=== PATIENT | female | born 1940 | race Caucasian/White ===

== ENCOUNTER → 2019-05-04 | Outpatient (CLI) | payer MEDICARE ==
--- NOTE | 2019-05-05 15:00 | RAD ---
DATE: 05/04/2019 3:00 PM EXAM: MAMMO GRACE SCREENING BILATERAL HISTORY: routine screening evaluation. COMPARISON: 07/30/2016 07/29/2015 Bilateral CC and MLO views of the breasts were performed. Bilateral breast tomosynthesis was performed in CC and MLO projections. This study was interpreted with the benefit of Computerized Aided Detection (CAD). Breast Density: FATTY The Breast Parenchyma is primarily fatty replaced. Breast parenchyma level density A. FINDINGS: Benign calcifications are present. No suspicious masses, microcalcifications or architectural distortion is present to suggest malignancy in either breast. The visualized axillae are unremarkable. IMPRESSION: No mammographic evidence of malignancy. BI-RADS CATEGORY: 2 BENIGN FINDING(S) RECOMMENDED FOLLOW-UP: 12M 12 MONTH FOLLOW-UP Annual screening mammography is recommended, unless clinically indicated sooner based on symptoms or change in physical exam. PQRS compliance statement: Patient information was entered into a reminder system with a target due date for the next mammogram. Mammography is a sensitive method for finding small breast cancers, but it does not detect them all and is not a substitute for careful clinical examination. A negative mammogram does not negate a clinically suspicious finding and should not result in delay in biopsying a clinically suspicious abnormality. "Our facility is accredited by the [employer] Mammography [employer]."
== END | disposition home or self-care (01) ==
LOC: MAMMO 14:40
PROVIDERS: ATTEND Family Medicine
DX: Z12.31 Encounter for screening mammogram for malignant neoplasm of breast (principal); N64.89 Other specified disorders of breast
CPT/HCPCS: 77063; 77067

== ENCOUNTER → 2021-02-12 | Outpatient (CLI) | payer MEDICARE ==
--- NOTE | 2021-02-13 00:05 | RAD ---
INDICATION: Screening for osteopenia/osteoporosis. Postmenopausal evaluation. COMPARISON: None. TECHNIQUE: Bone densitometry was performed through the lumbar spine and proximal femur. IMPRESSION: Lumbar Spine: BMD: 1.19 T-Score: 0.1 Range: Normal Proximal Femur: BMD: 0.84 T-Score: -0.9 Range: Lower limits of normal on border with osteopenia. World Health Organization Criteria for Bone Density: T-Score: > -1.0: Normal Range < -1.0 to -2.5: Osteopenic Range < -2.5: Osteoporotic Range Electronically signed by: Jarett Ambriz MD (02/13/2021 12:03 AM) [id number]
--- NOTE | 2021-02-13 11:21 | RAD ---
INDICATION: 80 years of age asymptomatic female patient presents for screening mammography. TECHNIQUE: Full field craniocaudal and mediolateral oblique images of both breasts were obtained usi ng digital technique with tomosynthesis and also analyzed with computer-aided detection software. COMPARISON: 07/30/2016, 05/04/2019. BREAST COMPOSITION: Category A: The breasts are predominantly fatty. FINDINGS: Benign calcifications are present. The parenchymal pattern appears stable. Indeterminate calcifications in the slightly medial, inferior left breast approximately 9-10 cm from the nipple. No suspicious left breast mass or architectural distortion. No suspicious masses, microcalcifications or architectural distortion is present to suggest malignanc y in the right breast. The visualized axillae are unremarkable. IMPRESSION: No mammographic evidence of malignancy. RECOMMENDATION: The patient will be contacted to return for additional imaging and a supplemental rep ort will follow. Additional imaging to include full field ML view as well as magnification views. BIRADS 0: INCOMPLETE - NEED ADDITIONAL IMAGING EVALUATION AND/OR PRIOR MAMMOGRAMS FOR COMPARISON. This study was interpreted with the benefit of Computerized Aided Detection (CAD). Patient information is entered into the reminder system with a target due date for the next screening mammogram. Mammography is the most sensitive method for finding small breast cancers, but it does not detect the m all and is not a substitute for careful clinical examination. A negative mammogram does not negate a clinically suspicious finding and should not result in delay in biopsying a clinically suspicious a bnormality. "Our facility is accredited by the [employer]ammography [employer]." Electronically signed by: Surya Cardoso MD (02/13/2021 11:19 AM) [id number]
== END ==
LOC: DXRAD 14:21
PROVIDERS: ATTEND Family Medicine
DX: Z12.31 Encounter for screening mammogram for malignant neoplasm of breast (principal); Z13.820 Encounter for screening for osteoporosis
CPT/HCPCS: 77067; 77080

== ENCOUNTER → 2021-02-20 | Outpatient (CLI) | payer MEDICARE ==
--- NOTE | 2021-02-20 14:45 | RAD ---
DATE: February 20, 2021 EXAM: DIGITAL DIAGNOSTIC LT HISTORY: Further evaluation calculation seen on screening mammogram. COMPARISON: Screening mammogram dated February 12, 2021 This study was interpreted with the benefit of Computerized Aided Detection (CAD). FINDINGS: Magnification compression views of the left breast were performed in the CC and MLO projections and a 90 degree view of the left breast was performed. Again seen are calcifications within the medial inferior aspect left breast. In the 90 degree view and MLO projection, these calcifications appear to follow a vessel. This is not seen in the CC view however. Therefore, these most likely represent vascular calcifications but recommend continued six-month follow-up mammography. IMPRESSION: Probable benign calcifications of the left breast. Six-month follow-up is recommended which should include magnification compression views of the left breast in the 90 degree and CC projections. BI-RADS CATEGORY: 3 PROBABLE BENIGN-SHORT TERM F/U RECOMMENDED FOLLOW-UP: 6M 6 MONTH FOLLOW-UP PQRS compliance statement: Patient information was entered into a reminder system with a target due date August 23, 2021 for the next mammogram. Mammography is a sensitive method for finding small breast cancers, but it does not detect them all and is not a substitute for careful clinical examination. A negative mammogram does not negate a clinically suspicious finding and should not result in delay in biopsying a clinically suspicious abnormality. "Our facility is accredited by the [employer] Mammography [employer]."
== END ==
LOC: MAMMO 13:59
PROVIDERS: ATTEND Family Medicine
DX: R92.1 Mammographic calcification found on diagnostic imaging of breast (principal)
CPT/HCPCS: 77065

== ENCOUNTER → 2021-09-01 | Outpatient (CLI) | payer MEDICARE ==
--- NOTE | 2021-09-01 15:27 | RAD ---
EXAM: Unilateral digital diagnostic mammography, left. HISTORY: Six-month follow-up left breast calcifications. TECHNIQUE: Bilateral full field digital images were obtained in CC and MLO projections. Computer-aide d detection was applied. COMPARISON: 02/20/2021, 02/12/2021, 05/04/2019. COMPOSITION: A. The breasts are almost entirely fatty. FINDINGS: A group of round calcifications inferomedially appears stable chronically. There is no asso ciated soft tissue mass. These are likely benign. Other scattered calcifications are benign. There are no suspicious masses, microcalcifications or arc hitectural distortion. The parenchymal pattern is stable. BI-RADS CATEGORY 2: Benign. RECOMMENDATION: 1. Presumably lateral screening mammography in 6 months. Electronically signed by: Noah Guillen MD (09/01/2021 3:25 PM) [email or web address]
== END ==
LOC: MAMMO 14:02
PROVIDERS: ATTEND Family Medicine
DX: R92.1 Mammographic calcification found on diagnostic imaging of breast (principal)
CPT/HCPCS: 77065